=== PATIENT | male | born 1985 | race Caucasian/White ===

== ENCOUNTER 2019-09-19 14:54 | Emergency (ER) | payer OTHER ==
--- NOTE | 2019-09-19 16:08 | EDM.PDOC ---
ED HPI GENERAL MEDICAL PROBLEM - General Chief Complaint: Back Pain or Injury Stated Complaint: BACK PAIN Time Seen by Provider: 09/19/19 16:08 - History of Present Illness INITIAL COMMENTS - FREE TEXT/NARRATIVE: 34-year-old male presents to the emergency room with back pain. Patient has a history of chronic back issues. He aggravated this on when he picked up his baby boy who was just under 30 pounds developed right- sided lumbar pain that extends into his buttocks does not go down the back of his thigh he has no nerve symptoms going down his leg however he has a couple of herniated disks that he is aware of. He herniated his disc while in the . The patient has no loss of bowel or bladder control. He is not having any problems with numbness or tingling down his legs. He denies abdominal pain. Lower Back Pain Score (Numeric/FACES): 10 - Related Data Allergies Allergy/AdvReac Type Severity Reaction Status Date / Time No Known Allergies Allergy Verified 09/19/19 15:28 Home Meds: Home Meds Cyclobenzaprine [Flexeril] 10 mg PO ASDIRECTED #15 tab 09/19/19 [Rx] Naproxen [Naprosyn] 500 mg PO Q12HR #30 tab 09/19/19 [Rx] Past Medical History - Past Health History Medical/Surgical History: Denies Medical/Surgical History Social & Family History - Family History Family Medical History: Noncontributory - Tobacco Use Smoking Status *Q: Current Every Day Smoker Years of Tobacco use: 20 Packs/Tins Daily: 0.5 Second Hand Smoke Exposure: No - Caffeine Use Caffeine Use: Reports: Coffee, Energy Drinks, Soda, Other Other Caffeine Use: rarely - Recreational Drug Use Recreational Drug Use: No ED ROS GENERAL - Review of Systems Review Of Systems: See Below Constitutional: Reports: No Symptoms Respiratory: Reports: No Symptoms Cardiovascular: Reports: No Symptoms GI/Abdominal: Reports: No Symptoms ED EXAM,LOWER BACK PAIN/INJURY - Physical Exam Exam: See Below Exam Limited By: No Limitations General Appearance: Alert, No Apparent Distress Neck: Normal Inspection, Supple, Non-Tender, Full Range of Motion. No: Lymphadenopathy (L), Lymphadenopathy (R) Respiratory/Chest: No Respiratory Distress, Lungs Clear, Normal Breath Sounds Cardiovascular: Regular Rate, Rhythm, No Edema, No Murmur GI/Abdominal: Normal Bowel Sounds, Soft, Non-Tender Back Exam: Muscle Spasm (He has marked tenderness in the right paraspinous muscles. I can can feel this with palpation as well. Straight leg raises are positive only for localized back pain). No: CVA Tenderness (L), CVA Tenderness (R), Vertebral Tenderness Course - Vital Signs Last Recorded V/S: Last Vital Signs Temp 36.2 C 09/19/19 15:25 Pulse 74 09/19/19 15:25 Resp 16 09/19/19 15:25 BP 129/81 09/19/19 15:25 Pulse Ox 99 09/19/19 15:25 - Orders/Labs/Meds Labs: Laboratory Tests 09/19/19 Range/Units 16:58 Urine Color Yellow (Yellow) Urine Appearance Clear (Clear) Urine pH 6.0 (5.0-8.0) Ur Specific [place] 1.025 (1.005-1.030) Urine Protein Negative (Negative) Urine Glucose (UA) Negative (Negative) Urine Ketones Negative (Negative) Urine Occult Blood Negative (Negative) Urine Nitrite Negative (Negative) Urine Bilirubin Negative (Negative) Urine Urobilinogen 0.2 (0.2-1.0) Ur Leukocyte Esterase Negative (Negative) Meds: Medications Discontinued Medications Generic Name Dose Route Start Last Admin Trade Name Areli PRN Reason Stop Dose Admin Cyclobenzaprine HCl 10 mg 09/19/19 16:47 09/19/19 16:54 Flexeril PO 09/19/19 16:48 10 mg ONETIME ONE Administration Ketorolac Tromethamine 60 mg 09/19/19 16:47 09/19/19 16:54 Toradol IM 09/19/19 16:48 60 mg ONETIME ONE Administration - Re-Assessments/Exams Free Text/Narrative Re-Assessment/Exam: 09/19/19 17:48 Urinalysis is unrevealing. The patient received an IM dose of Toradol and feels a little bit better it is certainly improving but not completely gone he was also given Flexeril this probably has not had enough chance to really do much. He will be discharged with Naprosyn to start tomorrow morning and Flexeril 1 more dose at bedtime and then 3 times daily for 2 days and then 1 at bedtime until gone. Departure - Departure Time of Disposition: 17:51 Disposition: Admitted As Inpatient 66 Clinical Impression: Acute lumbar myofascial strain - Discharge Information Prescriptions: Naproxen [Naprosyn] 500 mg PO Q12HR #30 tab Cyclobenzaprine [Flexeril] 10 mg PO ASDIRECTED #15 tab Referrals: Aldair Cabral Jr, MD [Primary Care Provider] - Forms: ED Department Discharge Additional Instructions: Return to the emergency room with any questions problems or worsening symptoms. Take the medications as directed. Do not take ibuprofen with the Naprosyn they both do the same thing. Do not lift anything over 20 pounds for now. Follow-up with your regular doctor towards the end of this week for recheck. Sepsis Event Note - Evaluation Sepsis Screening Result: No Definite Risk - Focused Exam Vital Signs: Vital Signs Temp Pulse Resp BP Pulse Ox 09/19/19 15:25 36.2 C 74 16 129/81 99 Date Exam was Performed: 09/19/19 Time Exam was Performed: 17:44
[2019-09-19] MEDS ORDERED: Cyclobenzaprine 10 MG Tab PO ONE (16:47)
[2019-09-19] MEDS ORDERED: Ketorolac 60 MG/2 ML SDV IM ONE (16:47)
== END 2019-09-19 18:02 | disposition home or self-care (01) ==
LOC: JD.ED 14:54
DX: S39.012A Strain of muscle, fascia and tendon of lower back, initial encounter (principal); F17.210 Nicotine dependence, cigarettes, uncomplicated; X50.9XXA Other and unspecified overexertion or strenuous movements or postures, initial encounter; Y93.89 Activity, other specified
CPT/HCPCS: 81003; 96372; 99284; A9270; J1885; 99283